=== PATIENT | female | born 1980 | race Caucasian/White ===

== ENCOUNTER → 2016-12-02 | Outpatient (CLI) | payer OTHER ==
[2016-12-02 09:55] LABS: HEMOGLOBIN 13.4 gm/dl (12.3-15.3); RED BLOOD COUNT 4.82 M/UL (4.00-5.10); WHITE BLOOD COUNT 7.8 K/UL (4.5-11.0)
== END ==
LOC: LAB 08:59
PROVIDERS: Anesthesiology
DX: D64.9 Anemia, unspecified (principal)
CPT/HCPCS: 36415; 85025